=== PATIENT | female | born 1950 | race African-American/Black ===

== ENCOUNTER 2016-12-02 09:02 | Emergency (ER) | payer MEDICAID, OTHER ==
[~2016-12-02] VITALS: Ht 175.3 cm; Wt 79.5 kg
[~2016-12-02 09:02] MED LIST: ASPI81 PO; GABA300C3 PO; HYZA50TA2 PO; LORA0.5T PO; METO50CR OR; PERC5TAB12 PO; PRED1%O LEFT EYE; SIMV40TA OR
[2016-12-02 09:03] VITALS: BP 161/74; PULSE 85; RESP 18; TEMP 98.5; O2SAT 100
[2016-12-02] MEDS ORDERED: DEXAMETHASONE SOD PHOS 4 MG/ML VIAL IM ONE (10:30)
--- NOTE | 2016-12-02 10:33 | PD ---
HPI Chief Complaint: Back/ Neck Pain or Injury Time Seen by Provider: 10:25 Travel History International Travel<30 days: No Contact w/Intl Traveler<30days: No Traveled to known affect area: No History of Present Illness HPI Patient comes in complaining of right-sided low back pain radiating down her right leg ongoing for 4 days. Patient states she has a history of chronic back issues and use to be on oxycodone and tramadol for this, but has not been on this for a while. Patient also complaining of right-sided neck pain is been ongoing for approximately a week without radiation. Patient reports she has chronic neck pain however got worse over the past week. Patient states she tried [id number] medication with minimal relief. Patient states she has appointment with pain management in a week or 2. Patient denies any fevers, nausea, vomiting, headache, loss change in bowel or bladder, numbness tingling anywhere, trauma, chest pain, shortness of breath or history of drug use. Patient states pain is worse with certain movements. PFSH Past Medical History Blood Disorders: No Anxiety: Yes Cancer: No Cardiovascular Problems: Yes (HIGH BP) High Cholesterol: Yes Diminished Hearing: No Endocrine: No Hypertension: Yes Psychiatric: Yes Respiratory: No Menopausal: Yes Past Surgical History Appendectomy: Yes Eye Surgery: Yes Hysterectomy: Yes Social History Alcohol Use: No Tobacco Use: No Substance Use: No Allergies-Medications (Allergen,Severity, Reaction): Coded Allergies: Tetracycline (Verified Allergy, Severe, 12/02/16) Reported Meds & Prescriptions Reported Meds & Active Scripts Active Robaxin (Methocarbamol) 500 Mg Tab 500 Mg PO Q8HR PRN Medrol Dosepak (Methylprednisolone) 4 Mg Dspk 4 Mg PO DIRECTED Per Pharmacist direction Review of Systems Except as stated in HPI: all other systems reviewed are Neg Physical Exam Narrative GENERAL: Well-developed, overly nourished, in no acute distress, and non-ill appearing. SKIN: Warm and dry. HEAD: Atraumatic. Normocephalic. EYES: EOMI. No scleral icterus. No injection or drainage. ENT: No nasal bleeding or discharge. Mucous membranes pink and moist. NECK: Trachea midline. No cervical lymphadenopathy. Supple. No nuclear rigidity. No tenderness or crepitus midline C-spine. Patient reports tenderness to palpation over right trapezius muscle. CARDIOVASCULAR: Dorsal and radial pulses 2+ intact bilaterally. Capillary refill less than 2 seconds. RESPIRATORY: No accessory muscle use. No respiratory distress. MUSCULOSKELETAL: No obvious deformities. No clubbing. No cyanosis. No edema. Full range of motion. Shoulder:FROM equal BL with passive flexion, extension, Abduction, Adduction, internal/external rotation, and pronation/supination. Sensation equal BL deltoid muscles. Pulses equal BL distal to injury. Capillary refill less than 2 seconds distal to injury and equal BL. FROM distal to injury and equal BL. Strength distal to injury equal BL. NV intact distal to injury equal BL. Flexion and extension of thumb equal BL. Equal strength and movement with abduction/adductions of BL fingers. [employer] strength equal BL. Patient reports to palpation over right SI joint. There is no tenderness crepitus over midline lumbar spine. Straight leg test positive on the right. NEUROLOGICAL: Awake and alert. No obvious cranial nerve deficits. Motor grossly within normal limits. Normal speech. PSYCHIATRIC: Appropriate mood and affect; insight and judgment normal. Data Data Last Documented VS Vital Signs Date Time Temp Pulse Resp B/P Pulse Ox O2 Delivery O2 Flow Rate FiO2 12/02/16 09:03 98.5 85 18 161/74 100 Room Air Orders Dexamethasone Inj (Decadron Inj) (12/02/16 10:30) MDM Medical Decision Making Medical Screen Exam Complete: Yes Emergency Medical Condition: Yes Differential Diagnosis Fracture, contusion, strain, sciatica, other Narrative Course The patient presented complaining of back pain with radiation down leg. There was no history of recent fall or trauma. There was no evidence to support genitourinary etiology. There is also no evidence to suggest vascular pathology such as AAA dissection. No fevers or other evidence to suspect infectious processes, abscess, osteomyelitis etc. The patients neurological exam is normal with normal motor and sensory. There is no saddle paresthesias reported and no bowel or bladder incontinence or retention. I suspect the pain is mechanical in nature with sciatica. Clinical suspicion, plan of care and management was discussed with the patient. The patient was instructed to follow up with their health care provider. The patient was also instructed to return if the pain worsened, changed, or developed weakness or bowel or bladder trouble. The patient agreed with plan. The patient also presented complaining of neck pain. There was no history of recent fall or blunt trauma. However, history elicited activity likely causing muscular strain and injury. There was no evidence to support cardiac or cardiopulmonary etiology (atypical angina, PE etc.) . There is also no evidence to suggest vascular pathology such as TAA or carotid dissection. No fevers or other evidence to suspect infectious processes, abscess, osteomyelitis etc. The patients neurological exam is normal with normal motor and sensory. There is no paresthesias or motor deficits reported or found and no bowel or bladder incontinence or retention. I suspect the pain is mechanical in nature. Clinical suspicion, plan of care and management was discussed with the patient. The patient was instructed to follow up with their health care provider. The patient was also instructed to return if the pain worsened, changed, or developed weakness or bowel or bladder trouble. The patient agreed with plan. Patient in no obvious distress upon re-evaluation. Patient was asked if they wanted to speak to my attending, which the patient did not wish to do at this time. Any questions/concerns in reference to patient diagnosis/condition discussed and clarified prior to patient's discharge. Reinforced sheer importance of close follow up with patient's primary physician or primary care clinic. Instructed patient to return to ED immediately, if symptoms return/ worsen. Pt showed understanding of above instructions. Further instructions and recommendations were detailed in discharge paperwork. Pt ambulated without difficulty out of ED at discharge. Diagnosis Primary Impression: Sciatica Qualified Code: M54.31 - Sciatica of right side Additional Impression: Neck pain on right side Patient Instructions: Cervical Neck Strain Exercises (GEN), Chronic Neck Pain ( GEN), General Instructions, Sciatica (ED) Additional Instructions: Follow-up with your primary care physician and/or pain management doctor this week for reevaluation. Take all medication as prescribed. Return to the emergency department if symptoms get worse. Med/Other Pt SpecificInfo: Prescription(s) given Scripts Methocarbamol (Robaxin)500 Mg Qab198 Mg PO Q8HR PRN (MUSCLE PAIN) #12 TAB Ref 0 Prov:Pilar Viveros MD 12/02/16 Methylprednisolone Dosepak (Medrol Dosepak)4 Mg Dspk4 Mg PO DIRECTED #1 DSPK Ref 0 Per Pharmacist direction Prov:Pilar Viveros MD 12/02/16 Disposition: 01 DISCHARGE HOME Condition: Stable Gunaaco Garner Dec 02, 2016 10:33
[2016-12-02] MEDS ORDERED: ROBA500T PO (10:35)
[2016-12-02] MEDS ORDERED: MEDR4PAK PO (10:35)
== END 2016-12-02 10:50 | disposition home or self-care (01) ==
LOC: NEPB 09:02
DX: M54.41 Lumbago with sciatica, right side (principal); M54.2 Cervicalgia
CPT/HCPCS: 96372; 99283; J1100